=== PATIENT | female | born 1985 | race Caucasian/White ===

== ENCOUNTER 2018-06-13 11:12 | Inpatient (IN) | payer OTHER ==
[~2018-06-13] VITALS: Ht 167.6 cm; Wt 86.0 kg
--- NOTE | 2018-06-19 09:21 | NUR ---
06/19/18 0921 EneidaDamaris 0833- PT ARRIVES TO ROOM 104 WITH HER , SISTER, AND MOTHER AT THE BEDSIDE. RESP EVEN AND UNLABORED. OXYGEN SAT MID TO HIGH 90'S ON RA. PT REPORTS NO PAIN OR NAUSEA. PT IV SITE INFUSING WELL WITH LR WITH 20 UNITS OF PITOCIN. 0835- GHULAM FOWLER PLACES BABY TO LEFT BREAST. 0842- PT SIPPING ON WATER TOLERATING WELL. PT REPORTS NO NAUSEA OR PAIN. 0855- REPORT GIVEN TO GHULAM FOWLER. ALL QUESTIONS ANSWERED. PT REMAINS ALERT AND ORIENTED WITH NO PAIN, NAUSEA, OR DIZZINESS. PT'S AT THE BEDSIDE.
--- NOTE | 2018-06-20 12:43 | PR ---
[facility] [address] [facility] [address] [place] [address] Signed PP Progress Notes Datetime Report Generated by CPN: 06/20/2018 12:43 SUBJECTIVE: [id number] Pain: Within normal limits Nausea/Vomiting: Denies Flatus: Yes Vital Signs: [id number] Vital Signs: Reviewed; Within Normal Limits EXAM: [id number] Abdomen/Uterus: Normal Lochia: Normal Extremities: Normal Incision: Normal IMPRESSION/PLAN/PROCEDURES: [id number] Impression: Normal progression Plan: Continue present management Procedures: None Progress Notes: Doing well, without complaint. Signing Physician: Brittany Mathis MD Copies: ~ *Electronically Signed* 06/20/18 1243 BRITTANY MATHIS MD PATIENT NAME: LAUREN GILLESPIE PROGRESS NOTE DATE OF : 87 PHYSICIAN: BRITTANY MATHIS MD RPT #: [id number] REPORT IS CONFIDENTIAL AND NOT TO BE RELEASED WITHOUT AUTHORIZATION
--- NOTE | 2018-06-21 08:59 | PR ---
[facility] [address] [place], [place] [address] Signed PP Progress Notes Datetime Report Generated by ANIYA: 06/21/2018 08:59 SUBJECTIVE: [id number] Pain: Within normal limits Nausea/Vomiting: Denies Flatus: Yes Bowel Movement: Yes Vital Signs: [id number] Vital Signs: Reviewed; Within Normal Limits Notable Details: PP Hgb/Hct = 9.4/28.4 EXAM: [id number] Cardiovascular: Normal Respiratory: Normal Abdomen/Uterus: Normal Lochia: Not Done Vulva/Perineum: Not Done Breasts: Not Done CVA Tenderness: Normal Extremities: Normal Incision: Normal Progress: Normal Exam Comments: Fundus firm U-2 nontender. Incision healing well w/ rufus in place. No erythema/edema IMPRESSION/PLAN/PROCEDURES: [id number] Impression: Normal progression Plan: Remove rufus; Discharge Procedures: None Progress Notes: Pt seen and examined. Doing well. Ambulating, voiding and tolerating full diet. Pain and lochia minimal. without difficulty. Denies fever/chill/nausea/lightheadedness or other complaint. Desires d/c home. Plannning vasectomy pp contraception. Plan: d/c home. Reviewed dc instructions in detail w/ pt and . [place] out prior to discharge. F/U Dr. Montaño 2 wks, sooner if needed. Reviewed r/o pp preE and VTE. Signing Physician: Mehul Landrum DO Copies: *Electronically Signed* 06/21/18 0809 MEHUL LANDRUM DO PATIENT NAME: LAUREN GILLESPIE PROGRESS NOTE DATE OF : 87 PHYSICIAN: MEHUL LANDRUM DO RPT #: [id number] REPORT IS CONFIDENTIAL AND NOT TO BE RELEASED WITHOUT AUTHORIZATION [facility] [address] [place] [address] Signed ~ *Electronically Signed* 06/21/18 0859 MEHUL LANDRUM DO PATIENT NAME: LAUREN GILLESPIE PROGRESS NOTE DATE OF : 87 PHYSICIAN: MEHUL LANDRUM DO RPT #: [id number] REPORT IS CONFIDENTIAL AND NOT TO BE RELEASED WITHOUT AUTHORIZATION
--- NOTE | 2018-06-23 08:59 | OR ---
[facility] [address] [place], [place] [address] Signed DATE OF OPERATION: 06/19/2018 SURGEON: Lincoln Montaño MD Patient of Dr. Montaño. PREOPERATIVE DIAGNOSIS: Term , previous section. POSTOPERATIVE DIAGNOSIS: Term , previous section. PROCEDURE: Repeat low transverse segment section. Delivery of live female . BULK MAIL TECHNICIAN: Dr. Landrum. ANESTHESIA: Spinal. ESTIMATED BLOOD LOSS: 600 mL. COMPLICATIONS: None. DRAINS: Childs to bladder. FINDINGS: Live female infant, Apgars 8 and 9. Weight 6 pounds 4 ounces. Normal uterus except for very thin lower uterine segment. There were no adhesions present. Both tubes and ovaries were normal. There was thin meconium found on delivery and nuchal cord once loose. DESCRIPTION OF PROCEDURE: The patient was brought to the operating room, placed in supine position. After adequate spinal anesthesia was obtained, was prepped and draped in usual sterile fashion and a Childs catheter was placed in the bladder. A Pfannenstiel skin incision was made Electronically Signed By: LINCOLN MONTAÑO MD 06/20/18 1246 PATIENT NAME: LAUREN GILLESPIE OPERATIVE REPORT DATE OF : 87 REPORT #: [id number] PHYSICIAN: LINCOLN MONTAÑO MD PCP: NO PRIMARY CARE PHYSICIAN REPORT IS CONFIDENTIAL AND NOT TO BE RELEASED WITHOUT AUTHORIZATION [facility] [address] [place], [place] [address] Signed through previous surgical scar using a scalpel. Subcutaneous tissue was dissected with a scalpel and Bovie. The fascia was nicked with scalpel and extended in transverse fashion using curved scissors. The underlying abdominal musculature was bluntly and sharply from the fascia above and below the incision. The abdominal musculature was bluntly and sharply along the midline. The peritoneum was grasped with hemostats, elevated, nicked with Metzenbaum scissors, extended in vertical fashion using Metzenbaum scissors. The Jv self-retaining retractor was inserted into the incision and tightened in place. The above findings were noted. The bladder was noted to be well away from the thin lower segment, so scalpel was used to carefully fabienne the lower segment and finger dissection used to open the incision in transverse fashion. Bulging bag of membranes with light meconium noted extended through the incision. This was opened with pickups with teeth. The infant was noted to be in vertex presentation and the infant's head easily delivered from the incision. The loose nuchal cord was removed and the rest of the easily delivered from the incision. The cord was doubly clamped and cut. The was passed off table in good condition awaiting nurse. The placenta was manually removed and uterine cavity explored a lap pad to remove any retained membranes. An angle stitch of 0 Monocryl was placed at one end in the incision in a running locking stitch of 0 Monocryl starting at the other end used to close the incision. A 2nd running stitch of 0 Monocryl was used to imbricate the 1st layer. The entire pelvis was irrigated, suctioned and examined. There was small amount of bleeding in the left angle. This was controlled with a [id number] stitch of 0 Monocryl which was placed while finger was placed behind the broad ligament to avoid any injury to the bowel or sidewall. At this point, there was minimal bleeding, so it was decided to place Evicel along the incision and in this an angle good hemostasis was noted. A sheet of ACell was placed over the lower uterine segment to help with healing. The anterior peritoneum was then closed using a running stitch of 2-0 Vicryl suture. The abdominal musculature was reapproximated using interrupted stitches of 0 Vicryl suture. The abdominal wall was irrigated, suctioned, and examined for any bleeding spots, cauterized with the Bovie. Powdered ACell sprinkled over the abdominal musculature. Then, the fascia closed using two running stitches of 0 Vicryl suture meeting in the midline. Subcutaneous tissue was closed using interrupted stitches of 3-0 Vicryl suture and the skin reapproximated using skin clips. The patient tolerated the procedure well went to recovery room in good condition. The sponge, needle, and instrument count correct at end of procedure. Lincoln Montaño MD MJB/MODL Electronically Signed By: LINCOLN MONTAÑO MD 06/20/18 1246 PATIENT NAME: LAUREN GILLESPIE OPERATIVE REPORT DATE OF : 87 REPORT #: [id number] PHYSICIAN: LINCOLN MONTAÑO MD PCP: NO PRIMARY CARE PHYSICIAN REPORT IS CONFIDENTIAL AND NOT TO BE RELEASED WITHOUT AUTHORIZATION [address] [address] Signed /[id number] Copies: ~ Electronically Signed By: LINCOLN MONTAÑO MD 06/20/18 1246 PATIENT NAME: GINNA GILLESPIELINE DENVER OPERATIVE REPORT DATE OF : 87 REPORT #: [id number] PHYSICIAN: LINCOLN MONTAÑO MD PCP: NO PRIMARY CARE PHYSICIAN REPORT IS CONFIDENTIAL AND NOT TO BE RELEASED WITHOUT AUTHORIZATION
== END 2018-06-21 11:10 | disposition home or self-care (01) | DRG 788 ==
LOC: FBC 06-19 05:50
PROVIDERS: ADMIT General Practice
PROC: 10D00Z1 Extraction of Products of Conception, Low, Open Approach (ICD-10-PCS; principal; 2018-06-19 06:45)
DX: O34.211 Maternal care for low transverse scar from previous cesarean delivery (principal); O69.81X0 Labor and delivery complicated by cord around neck, without compression, not applicable or unspecified; Z3A.39 39 weeks gestation of pregnancy; Z37.0 Single live birth; O77.0 Labor and delivery complicated by meconium in amniotic fluid; O34.43 Maternal care for other abnormalities of cervix, third trimester; Z88.1 Allergy status to other antibiotic agents; Z88.0 Allergy status to penicillin
CPT/HCPCS: 01961; 36415; 85027; J0131; J0690; J1100; J2270; J2274; J2370; J2405; J2550; J2590; J2765; J3010; J7120

== ENCOUNTER 2020-03-29 23:26 | Emergency (ER) | payer OTHER ==
[~2020-03-29] VITALS: Ht 167.6 cm; Wt 62.1 kg
[2020-03-29] MEDS ORDERED: VITAMIN D21250 MCG PO (23:41)
[2020-03-29] MEDS ORDERED: ALPRAZOLAM0.5 MG PO (23:42)
--- OUTSIDE RECORDS SUMMARY | 2020-03-29 23:46 | XMS ---
PreManage Notification: LAUREN GILLESPIE Security Medical Records Coder Events No recent Security Events currently on file [facility] There are no care providers on record at this time. Scotty has no Care Guidelines for this patient. [place] VISIT COUNT (12 MO.) 1 BRI [facility] TOTAL 1 NOTE: Visits indicate total known visits. ED/UCC VISIT TRACKING (12 MO.) 03/29/2020 23:27 [facility] [place] TYPE: Emergency COMPLAINT: - LEFT SIDE CHEST PAIN INPATIENT VISIT TRACKING (12 MO.) No inpatient visits to display in this time frame [email or web address]
--- NOTE | 2020-03-30 17:46 | EKG ---
[facility] [address] [facility] [place], [place] [address] Signed Normal sinus rhythm Normal ECG When compared with ECG of 29-MAR-2020 23:31, (Unconfirmed) No significant change was found Confirmed by NAZ RAMIREZ DO ([id number]) on 03/30/2020 5:46:05 PM Electronically Signed By: NAZ RAMIREZ DO 03/30/20 1746 PATIENT NAME: LAUREN GILLESPIE Electrocardiogram DATE OF : 87 PHYSICIAN: NAZ RAMIREZ DO REPORT #: [id number] REPORT IS CONFIDENTIAL AND NOT TO BE RELEASED WITHOUT AUTHORIZATION
== END 2020-03-30 00:42 | disposition home or self-care (01) ==
LOC: ED 23:26
DX: R07.89 Other chest pain (principal); Z88.0 Allergy status to penicillin; Z88.1 Allergy status to other antibiotic agents
CPT/HCPCS: 71045; 80053; 83735; 83880; 84484; 85025; 85379; 93005; 93010; 99285-25